=== PATIENT | male | born 1960 | race Caucasian/White ===

== ENCOUNTER 2017-10-23 18:20 | Emergency (ER) | payer MEDICARE, MEDICAID ==
[~2017-10-23] VITALS: Ht 175.3 cm; Wt 74.8 kg
[~2017-10-23 18:20] MED LIST: ACETAMINOP500 MG/51 ORAL; ATIVAN1 MG ORAL; BENADRYL25 MG ORAL; BENZTROPINE ME0.5 MG PO; DUONEB 0.5-3(2.53 ML HHN; HALOPERIDOL1 MG ORAL; IRON325 M1 PO; KEPPRA500 M4 ORAL; LACTULOSE20 GM/301 ORAL; MIRTAZAPINE15 MG ORAL; MULTIVITAMINS1 EAC8 ORAL; PEPCID20 MG ORAL; VANCOMYCIN1 GM/2502 IVPB
[2017-10-23] MEDS ORDERED: QUETIAPINE FUMA50 MG ORAL (18:25)
[2017-10-23] MEDS ORDERED: DEPAKOTE250 MG PO (18:25)
[2017-10-23] MEDS ORDERED: DOCUSATE SODIU100 MG ORAL (18:25)
--- NOTE | 2017-10-23 18:35 | Emergency Room Report ---
History of Present Illness General Chief Complaint: Dyspnea/Respdistress Source: Medical Record, EMS, PMD Present Illness HPI Patient is a 57-year-old male brought in by EMS after increased fever and lethargy. Patient had been noted to have a decreased oral intake. He was noted to have increased difficulty breathing and started on supplemental oxygen by EMS. Allergies: Coded Allergies: No Known Allergies (Unverified , 08/27/16) Patient History Reviewed Nursing Documentation: PMH: Agreed, PSxH: Agreed Nursing Documentation-PMH Hx Cardiac Problems: No Hx COPD: Yes Hx Cancer: No Hx Gastrointestinal Problems: Yes Hx Neurological Problems: Yes - Encephalopathy Hx Cerebrovascular Accident: Yes - Intracerebral bleed (non traumatic) Hx Parkinson's Disease: Yes Hx Seizures: Yes Review of Systems All Other Systems: limited - by mental status Physical Exam Vital Signs Date Time Temp Pulse Resp B/P (MAP) Pulse Ox O2 Delivery O2 Flow Rate FiO2 10/23/17 18:18 92 20 143/75 97 Non-Rebreather 15.0 General Appearance: lethargic, Chronically Ill ENT: dry mucus membranes Neck: limited range of motion Respiratory: decreased breath sounds, crackles Cardiovascular #1: tachycardia Gastrointestinal: normal inspection, non tender, soft, no mass Musculoskeletal: decreased range of motion Neurologic: responsive, motor weakness, other - poor alertness Medical Decision Making Diagnostic Impression: Primary Impression: Encephalopathy Additional Impressions: Dehydration Pneumonia UTI (urinary tract infection) ER Course Patient presented for shortness of breath.Differential included but was not limited to anemia, pneumonia, pneumothorax, myocardial infarction, pericardial effusion, congestive heart failure, acidosisBecause of complexity of patient's case laboratory testing and imaging studies were ordered. I laboratory testing showed elevated white blood count. Patient started on IV fluids and IV antibiotics. Dr.Jameel Simeon was contacted for primary care physician and patient will be transferred to [facility] for continutiy of care.. Labs Test 10/23/17 19:00 10/23/17 20:03 White Blood Count 11.1 K/UL (4.8-10.8) Red Blood Count 3.86 M/UL (4.70-6.10) Hemoglobin 12.8 G/DL (14.2-18.0) Hematocrit 39.5 % (42.0-52.0) Mean Corpuscular Volume 102 FL (80-99) Mean Corpuscular Hemoglobin 33.1 PG (27.0-31.0) Mean Corpuscular Hemoglobin Concent 32.5 G/DL (32.0-36.0) Red Cell Distribution Width 17.2 % (11.6-14.8) Platelet Count 74 K/UL (150-450) Mean Platelet Volume 8.6 FL (6.5-10.1) Neutrophils (%) (Auto) 82.8 % (45.0-75.0) Lymphocytes (%) (Auto) 7.9 % (20.0-45.0) Monocytes (%) (Auto) 7.9 % (1.0-10.0) Eosinophils (%) (Auto) 0.6 % (0.0-3.0) Basophils (%) (Auto) 0.8 % (0.0-2.0) Prothrombin Time 14.0 SEC (9.30-11.50) Prothromb Time International Ratio 1.3 (0.9-1.1) Activated Partial Thromboplast Time 28 SEC (23-33) Sodium Level 164 MMOL/L (136-145) Potassium Level 3.8 MMOL/L (3.5-5.1) Chloride Level 129 MMOL/L (98-107) Carbon Dioxide Level 20 MMOL/L (21-32) Anion Gap 15 mmol/L (5-15) Blood Urea Nitrogen 42 mg/dL (7-18) Creatinine 1.5 MG/DL (0.55-1.30) Estimat Glomerular Filtration Rate 47.9 mL/min (>60) Glucose Level 136 MG/DL (74-106) Lactic Acid Level 1.90 mmol/L (0.66-2.22) Calcium Level 9.0 MG/DL (8.5-10.1) Total Bilirubin 4.0 MG/DL (0.2-1.0) Direct Bilirubin 1.7 MG/DL (0.0-0.3) Aspartate Amino Transf (AST/SGOT) 36 U/L (15-37) Alanine Aminotransferase (ALT/SGPT) 26 U/L (12-78) Alkaline Phosphatase 106 U/L (46-116) Total Creatine Kinase 327 U/L (26-308) Creatine Kinase MB 3.9 NG/ML (0.0-3.6) Creatine Kinase MB Relative Index 1.1 Troponin I 0.012 ng/mL (0.000-0.056) Total Protein 9.1 G/DL (6.4-8.2) Albumin 2.8 G/DL (3.4-5.0) Globulin 6.3 g/dL Albumin/Globulin Ratio 0.4 (1.0-2.7) Urine Color Brown Urine Appearance Turbid Urine pH 8 (4.5-8.0) Urine Specific [place] 1.010 (1.005-1.035) Urine Protein 3+ (NEGATIVE) Urine Glucose (UA) Negative (NEGATIVE) Urine Ketones 2+ (NEGATIVE) Urine Occult Blood 5+ (NEGATIVE) Urine Nitrite Positive (NEGATIVE) Urine Bilirubin 1+ (NEGATIVE) Urine Ictotest Positive Urine Urobilinogen 12 MG/DL (0.0-1.0) Urine Leukocyte Esterase 3+ (NEGATIVE) Urine RBC Tntc /HPF (0 - 0) Urine WBC Tntc /HPF (0 - 0) Urine Squamous Epithelial Cells None /LPF (NONE/OCC) Urine Bacteria Many /HPF (NONE) EKG Diagnostic Results Rate: tachycardiac Rhythm: NSR ST Segments: no acute changes - 100 Last Vital Signs Date Time Temp Pulse Resp B/P (MAP) Pulse Ox O2 Delivery O2 Flow Rate FiO2 10/23/17 18:18 92 20 143/75 97 Non-Rebreather 15.0 Status: unchanged Disposition: [facility] Condition: Serious Marcellus Blair Oct 23, 2017 18:35
[2017-10-23] MEDS ORDERED: NS 1000ml 2,200 ML IVLG ONE (18:45)
[2017-10-23] MEDS ORDERED: Ampicillin/Sulbactam Sod 3 GM in NS 110 ML IV SCH (18:45)
[2017-10-23 19:15] VITALS: BP 143/75
[2017-10-23] MEDS ORDERED: Unasyn 3gm Inj ONE (19:44)
[2017-10-23 19:49] LABS: HEMATOCRIT 39.5 % (42.0-52.0); HEMOGLOBIN 12.8 G/DL (14.2-18.0); MEAN CORPUSCULAR VOLUME 102 FL (80-99); PLATELET COUNT 74 K/UL (150-450); RED BLOOD COUNT 3.86 M/UL (4.70-6.10); RED CELL DISTRIBUTION WIDTH 17.2 % (11.6-14.8); WHITE BLOOD COUNT 11.1 K/UL (4.8-10.8)
[2017-10-23 19:54] LABS: BASOPHILS % (AUTO) 0.8 % (0.0-2.0); EOSINOPHILS % (AUTO) 0.6 % (0.0-3.0); LYMPHOCYTES % (AUTO) 7.9 % (20.0-45.0); MONOCYTES % (AUTO) 7.9 % (1.0-10.0); NEUTROPHILS % (AUTO) 82.8 % (45.0-75.0)
[2017-10-23 19:56] LABS: INR 1.3 (0.9-1.1)
[2017-10-23 20:18] LABS: ALANINE AMINOTRANSFERASE 26 U/L (12-78); ALBUMIN 2.8 G/DL (3.4-5.0); ALBUMIN/GLOBULIN RATIO 0.4 (1.0-2.7); ALKALINE PHOSPHATASE 106 U/L (46-116); ANION GAP 15 mmol/L (5-15); ASPARTATE AMINO TRANSFERASE 36 U/L (15-37); BLOOD UREA NITROGEN 42 mg/dL (7-18); CARBON DIOXIDE 20 MMOL/L (21-32); CHLORIDE 129 MMOL/L (98-107); CKMB 3.9 NG/ML (0.0-3.6); CREATINE KINASE 327 U/L (26-308); CREATININE 1.5 MG/DL (0.55-1.30); POTASSIUM 3.8 MMOL/L (3.5-5.1)
[2017-10-23 20:19] LABS: APPEARANCE,URINE TURBID; BILIRUBIN, URINE 1+ (NEGATIVE); COLOR,URINE BROWN; GLUCOSE, URINE (UA) NEGATIVE (NEGATIVE); KETONES,URINE 2+ (NEGATIVE); LEUKOCYTE ESTERASE ,URINE 3+ (NEGATIVE); NITRITE,URINE POSITIVE (NEGATIVE); PH,URINE 8 (4.5-8.0); PROTEIN,URINE 3+ (NEGATIVE); UROBILINOGEN,URINE 12 MG/DL (0.0-1.0)
[2017-10-23 20:27] LABS: SODIUM 164 MMOL/L (136-145)
[2017-10-23 20:30] LABS: BILIRUBIN,DIRECT 1.7 MG/DL (0.0-0.3)
[2017-10-23 21:15] VITALS: BP 150/56
[2017-10-23] MEDS ORDERED: Albuterol/Ipratropium 3ml neb HHN PRN (22:15)
[2017-10-23] MEDS ORDERED: Morphine Sulfate 2mg/ml Inj IVP PRN (22:15)
[2017-10-23] MEDS ORDERED: Miralax 17gm pkt ORAL PRN (22:15)
[2017-10-23 23:15] VITALS: BP 144/70
[2017-10-24] MEDS ORDERED: Vancomycin 1 GM in D5W 275 ML IV SCH (00:30)
[2017-10-24 00:45] VITALS: BP 125/60
[2017-10-24 00:55] VITALS: BP 125/60
[2017-10-24] MEDS ORDERED: Heparin 5000 units/ml inj SUBQ SCH (09:00)
[2017-10-24] MEDS ORDERED: Cefepime HCl 2 GM in D5W 110 ML IV SCH (09:00)
--- NOTE | 2017-10-24 13:34 | Diagnostic Imaging Report ---
Indication: Shortness of breath Technique: One view of the chest Comparison: 09/07/2016 Findings: There is generalized interstitial prominence and central bronchial wall thickening. There is some interstitial nodularity in the right lung. Previously demonstrated hazy basilar opacities are no longer evident. No focal airspace consolidation. Pleural spaces are clear. The heart size is normal. Impression: Bilateral mild interstitial prominence and central bronchial wall thickening, that acute indeterminate but suspect chronic, likely COPD changes. Interstitial nodularity of the right lung. Further evaluation with chest CT should be considered
--- NOTE | 2017-10-24 18:57 | Cardiology Report ---
APPROVED REPORT EKG Measurement Heart [id number] [address] N[address] abnormality Abnormal ECG
== END 2017-10-24 00:45 | disposition short-term general hospital (02) ==
LOC: EDBD 18:20 → EMR 19:52
DX: G93.40 Encephalopathy, unspecified (principal); E86.0 Dehydration; J18.9 Pneumonia, unspecified organism; N39.0 Urinary tract infection, site not specified; J44.9 Chronic obstructive pulmonary disease, unspecified; G20 Parkinson's disease
CPT/HCPCS: 36415; 71045; 80053; 81003; 82248; 82550; 82553; 83605; 84484; 85025; 85610; 85730; 86710; 87040; 87086; 87181; 93005; 96361; 96365; 96366; 96375; 99285; J0295